=== PATIENT | male | born 1930 | race Caucasian/White ===

== ENCOUNTER 2017-01-16 08:49 | Emergency (ER) | payer MEDICARE ==
--- NOTE | 2017-01-16 09:50 | ED Physician Documentation ---
PD HPI LOWER EXT INJURY - Stated complaint Stated Complaint: LEFT ANKLE INJ/GLF - Chief complaint Chief Complaint: Ext Problem - History obtained from History obtained from: Patient, Family - History of Present Illness PD HPI LOW EXT INJURY LOCATION: Left, Ankle Type of injury: Fall, Twist Where injury occurred: Home Timing - onset: Enter time (1130), Yesterday Timing - duration: Days (1) Timing - details: Abrupt onset, Still present Improved by: Rest, Ice, Immobilization Worsened by: Moving, Palpating Associated symptoms: Swelling. No: Weakness, Numbness Contributing factors: No: Anticoagulated Similar symptoms before: Has not had sx before Recently seen: Not recently seen - Additional information Additional information: 86 y/o male has never sprained his ankle previously and he now was walking down some steps when he twisted his ankle and has a lot of swelling laterally and pain with weight bearing. He is able to bear some weight. Review of Systems Constitutional: denies: Fever Respiratory: denies: Cough GI: denies: Vomiting Skin: denies: Rash Musculoskeletal: reports: Extremity pain, Joint swelling, Pain with weight bearing. denies: Neck pain, Back pain Neurologic: denies: Generalized weakness, Focal weakness, Numbness PD PAST MEDICAL HISTORY - Past Medical History Past Medical History: Yes Cardiovascular: Hypertension, High cholesterol, Coronary artery disease, Other Respiratory: None Endocrine/Autoimmune: None GI: GERD : None HEENT: None Psych: None Musculoskeletal: None Derm: None - Past Surgical History Past Surgical History: Yes General: Colonoscopy Ortho: Hip replacement Cardiovascular: CABG, Valve replacement, AICD HEENT: Cataracts - Present Medications Home Medications: Ambulatory Orders Medication Instructions Recorded Confirmed Ascorbic Acid [Vitamin C] 1,000 mg PO DAILY 08/06/13 01/16/17 Atorvastatin Calcium [Lipitor] 80 mg PO DAILY 08/06/13 01/16/17 Cholecalciferol (Vitamin D3) 1,000 unit PO DAILY 08/06/13 01/16/17 [Vitamin D] Colestipol HCl 2 gm PO DAILY 08/06/13 01/16/17 Docusate Sodium [Stool Softener] 50 mg PO PRN PRN 08/06/13 01/16/17 Ferrous Sulfate [Slow Release Iron] 45 mg PO BID 08/06/13 01/16/17 Lisinopril [Zestril] 7.5 mg PO DAILY 08/06/13 01/16/17 Metoprolol Succinate [Toprol Xl] 25 mg PO DAILY 08/06/13 01/16/17 Multivitamin [Multivitamins] 1 each PO DAILY 08/06/13 01/16/17 [place]-3 Fatty Acids [Fish Oil] 1,200 mg PO DAILY 08/06/13 01/16/17 Omeprazole [PriLOSEC] 20 mg PO DAILY 08/06/13 01/16/17 Ubidecarenone [Coq-10] 100 mg PO DAILY 08/06/13 01/16/17 Aspirin 325 mg PO DAILY 01/16/17 01/16/17 - Allergies Allergies/Adverse Reactions: Allergies Allergy/AdvReac Type Severity Reaction Status Date / Time No Known Drug Allergies Allergy Verified 01/16/17 08:59 - Social History Does the pt smoke?: No Smoking Status: Never smoker PD ED PE NORMAL - Vitals Vital signs reviewed: Yes (hypertensive mild ) - General General: No acute distress, Well developed/nourished - HEENT HEENT: Atraumatic, PERRL - Respiratory Respiratory: No respiratory distress - Derm Derm: Normal color, Warm and dry, No rash - Extremities Extremities: Other (There is trace edema bilaterally and there is tenderness to the lateral malleolus and pain with dorsiflexion. Distal n/v is intact. ) - Neuro Neuro: No motor deficit, No sensory deficit - Psych Psych: Normal mood, Normal affect Results - Vitals Vitals: Vital Signs - 24 hr 01/16/17 01/16/17 08:55 10:44 Temperature 36.6 C Heart Rate 74 65 Respiratory 18 16 Rate Blood Pressure 134/76 H 101/52 L O2 Saturation 99 95 Oxygen O2 Source Room air - Rads (name of study) left ankle Radiology: Prelim report reviewed (Impression: 1. 2 mm displaced mildly comminuted Dunn type B distal fibular fracture. 2. No dislocation.), EMP read indepedently, See rad report Procedures - Splint (location) left ankle Splint applied by: Tech Type of splint: Fiberglass, Posterior Other: Patient tolerated well, No complications, Neurovascular intact, Good alignment, Crutches provided PD MEDICAL DECISION MAKING - ED course Complexity details: reviewed results, re-evaluated patient, considered differential, d/w patient, d/w family ED course: 86 y/o male with a distal fibular fracture is placed into a splint and will have follow up with ortho. Departure - Departure Disposition: 01 Home, Self Care Clinical Impression: Fracture of distal end of left fibula Qualifiers: Encounter type: initial encounter Fracture type: closed Fracture morphology: other fracture Qualified Code(s): S82.832A - Other fracture of upper and lower end of left fibula, initial encounter for closed fracture Condition: Stable Instructions: ED Fx Ankle Lateral Malleolus Follow-Up: Corbin Alston MD [Primary Care Provider] - [facility] [Provider Group]
--- NOTE | 2017-01-16 10:38 | XRAY Preliminary Report ---
Exam: XR Ankle 3 View LT IMPRESSION: 1. 2 mm displaced mildly comminuted Dunn type B distal fibular fracture. 2. No dislocation. [facility] SITE ID: [id number]
--- NOTE | 2017-01-16 10:41 | XRAY Report ---
EXAM: LEFT ANKLE RADIOGRAPHY EXAM DATE: 01/16/2017 10:04 AM. CLINICAL HISTORY: Left lateral ankle pain and swelling status post fall. COMPARISON: None. TECHNIQUE: 3 views. FINDINGS: Bones: Acute Dunn type B oblique distal fibular fracture is displaced by approximately 2 mm. A small accessory fragment is present medially. No medial malleolar fracture present. Joints: The ankle mortise is symmetric. Mild osteoarthritis present with tiny osteophytes developing. No joint effusion. Soft Tissues: Lateral soft tissue swelling measures up to 12 mm . Diffuse vascular calcifications are noted diffusely. IMPRESSION: 1. 2 mm displaced mildly comminuted Dunn type B distal fibular fracture. 2. No dislocation. [facility] Referring Provider Line: [phone] SITE ID: [id number]
[2017-01-16 10:46] VITALS: BP 101/52
== END 2017-01-16 12:20 | disposition home or self-care (01) ==
LOC: ED 08:49
DX: S82.832A Other fracture of upper and lower end of left fibula, initial encounter for closed fracture (principal); I10 Essential (primary) hypertension; Z79.82 Long term (current) use of aspirin; X50.1XXA Overexertion from prolonged static or awkward postures, initial encounter; Y92.009 Unspecified place in unspecified non-institutional (private) residence as the place of occurrence of the external cause
CPT/HCPCS: 29515; 99283

== ENCOUNTER 2017-02-22 13:18 | Outpatient (CLI) | payer MEDICARE ==
--- NOTE | 2017-02-22 18:11 | XRAY Report ---
THREE VIEW LEFT ANKLE: 02/22/2017 CLINICAL INDICATION: Fracture followup. AP, oblique, lateral views of the left ankle demonstrate stable alignment of the distal fibular shaft fracture. Minimal callus formation is noted. Surgical clips in the soft tissues are stable. Mild osteoarthritic changes are stable. IMPRESSION: STABLE ALIGNMENT OF DISTAL FIBULAR SHAFT FRACTURE, WITH MINIMAL CALLUS FORMATION. JOB #: [id number] EXT JOB #:[id number]
== END 2017-02-22 13:19 | disposition home or self-care (01) ==
LOC: DI.S 13:18
PROVIDERS: ATTEND Orthopaedic Surgery
DX: S82.65XD Nondisplaced fracture of lateral malleolus of left fibula, subsequent encounter for closed fracture with routine healing (principal)

== ENCOUNTER 2017-03-21 20:30 | Outpatient (CLI) | payer MEDICARE ==
[2017-03-21 18:45] LABS: ALBUMIN/GLOBULIN RATIO 1.6 (1.0-2.2); BILIRUBIN,TOTAL 0.9 mg/dL (0.2-1.0); BUN - BLOOD UREA NITROGEN 17 mg/dL (6-20); CALCIUM 9.1 mg/dL (8.5-10.3); CARBON DIOXIDE - CO2 30 mmol/L (21-32); CHLORIDE 100 mmol/L (101-111); CHOL/HDL RATIO 2.6 (<5.0); CHOLESTEROL 135 mg/dL; CREATININE 0.9 mg/dL (0.6-1.2); GFR - MDRD 80 (>89); GLUCOSE 102 mg/dL (70-100); HDL CHOLESTEROL 51 mg/dL; LDL/HDL RATIO 1.4 (<3.6); POTASSIUM 4.4 mmol/L (3.5-5.0); SODIUM 139 mmol/L (135-145); TOTAL PROTEIN 6.7 g/dL (6.7-8.2); TRIGLYCERIDES 63 mg/dL; VLDL CHOLESTEROL 13 mg/dL
[2017-03-21 19:08] LABS: BASOPHILS % (AUTO) 0.5 %; EOSINOPHILS # (AUTO) 0.6 10^3/uL (0.0-0.7); HCT - HEMATOCRIT 44.7 % (42.0-52.0); HGB - HEMOGLOBIN 14.7 g/dL (14.0-18.0); LYMPHOCYTES # (AUTO) 1.4 10^3/uL (1.5-3.5); LYMPHOCYTES % (AUTO) 20.3 %; MEAN CORPUSCULAR HEMOGLOBIN 32.2 pg (27.0-31.0); MEAN CORPUSCULAR VOLUME 97.6 fL (80.0-94.0); MEAN PLATELET VOLUME 9.7 fL (7.4-11.4); MONOCYTES # (AUTO) 0.6 10^3/uL (0.0-1.0); MONOCYTES % (AUTO) 8.4 %; NEUTROPHILS # (AUTO) 4.2 10^3/uL (1.5-6.6); NEUTROPHILS % (AUTO) 61.8 %; NUCLEATED RED BLOOD CELLS AUTO 0.1 /100WBC; RED BLOOD COUNT 4.58 10^6/uL (4.70-6.10); RED CELL DISTRIBUTION WIDTH 14.2 % (12.0-15.0); UNCORRECTED WHITE BLOOD COUNT 6.7 x10^3/uL; WHITE BLOOD COUNT 6.7 x10^3/uL (4.8-10.8)
== END 2017-03-21 20:31 | disposition home or self-care (01) ==
LOC: LAB.S 20:30
PROVIDERS: ATTEND Physician Assistant Medical
DX: I25.10 Atherosclerotic heart disease of native coronary artery without angina pectoris (principal); N40.1 Benign prostatic hyperplasia with lower urinary tract symptoms; E78.2 Mixed hyperlipidemia; K20.8 Other esophagitis; Z79.899 Other long term (current) drug therapy
CPT/HCPCS: 36415; 80053; 80061; 84153; 84443; 85025

== ENCOUNTER 2017-07-20 14:37 | Observation (INO) | payer MEDICARE ==
[2017-07-20] MEDS ORDERED: SODIUM CHLORIDE 0.9% 1,000 ML IV ONE (15:16)
[2017-07-20 15:37] LABS: BASOPHILS # (AUTO) 0.1 10^3/uL (0.0-0.1); EOSINOPHILS # (AUTO) 0.2 10^3/uL (0.0-0.7); EOSINOPHILS % (AUTO) 3.7 %; HGB - HEMOGLOBIN 15.4 g/dL (14.0-18.0); LYMPHOCYTES # (AUTO) 0.9 10^3/uL (1.5-3.5); MEAN CORPUSCULAR HEMOGLOBIN 32.2 pg (27.0-31.0); MEAN CORPUSCULAR HGB CONC 34.2 g/dL (32.0-36.0); MEAN CORPUSCULAR VOLUME 94.1 fL (80.0-94.0); MONOCYTES # (AUTO) 0.5 10^3/uL (0.0-1.0); MONOCYTES % (AUTO) 9.5 %; NEUTROPHILS # (AUTO) 3.9 10^3/uL (1.5-6.6); NEUTROPHILS % (AUTO) 68.8 %; PLT - PLATELET COUNT 164 10^3/uL (130-450); RED BLOOD COUNT 4.77 10^6/uL (4.70-6.10); WHITE BLOOD COUNT 5.6 x10^3/uL (4.8-10.8)
[2017-07-20 15:44] LABS: CALCIUM 9.2 mg/dL (8.5-10.3); CREATININE 0.9 mg/dL (0.6-1.2)
[2017-07-20] MEDS ORDERED: BARIUM SULFATE 148 GM POWDER PO ONE (16:00)
[2017-07-20] MEDS ORDERED: BARIUM SULFATE 135 ML BOTTLE PO ONE (16:00)
--- NOTE | 2017-07-20 16:29 | ED Physician Documentation ---
History of Present Illness - Stated complaint Stated Complaint: TROUBLE SWALLOWING - Chief complaint Chief Complaint: Heent - History obtained from History obtained from: Patient - History of Present Illness Timing: How many days ago (3) - Additonal information Additional information: The patient is an 87-year-old male who presents with difficulty swallowing. His symptoms started 3 days ago after swallowing an orange wedge. Since that time he has had "regurgitation" whenever he tries eating. He reports associated nausea, and discomfort in his lower substernal chest when attempting to swallow. He denies abdominal pain, cough, shortness of breath, or fever. He was seen by his primary physician yesterday and reported improvement of his symptoms, so was instructed in soft diet. He presents now because of continued inability to swallow today. He denies history of similar symptoms in the past. Past medical history is significant for aortic valve replacement with bovine valve. Review of Systems Constitutional: denies: Fever Nose: denies: Congestion Throat: denies: Sore throat Cardiac: reports: Chest pain / pressure (with swallowing). denies: Palpitations Respiratory: denies: Dyspnea, Cough GI: reports: Nausea, Vomiting. denies: Abdominal Pain : denies: Dysuria Skin: denies: Rash Musculoskeletal: denies: Back pain, Extremity swelling Neurologic: denies: Focal weakness, Numbness, Headache PD PAST MEDICAL HISTORY - Past Medical History Cardiovascular: Hypertension, High cholesterol, Coronary artery disease, Other Respiratory: None Endocrine/Autoimmune: None GI: GERD : None HEENT: None Psych: None Musculoskeletal: None Derm: None - Past Surgical History Past Surgical History: Yes General: Colonoscopy Ortho: Hip replacement Cardiovascular: CABG, Valve replacement, AICD HEENT: Cataracts - Present Medications Home Medications: Ambulatory Orders Medication Instructions Recorded Confirmed Ascorbic Acid [Vitamin C] 1,000 mg PO DAILY 08/06/13 07/20/17 Atorvastatin Calcium [Lipitor] 80 mg PO DAILY 08/06/13 07/20/17 Cholecalciferol (Vitamin D3) 1,000 unit PO DAILY 08/06/13 07/20/17 [Vitamin D] Colestipol HCl 2 gm PO DAILY 08/06/13 07/20/17 Docusate Sodium [Stool Softener] 50 mg PO PRN PRN 08/06/13 07/20/17 Ferrous Sulfate [Slow Release Iron] 45 mg PO BID 08/06/13 07/20/17 Lisinopril [Zestril] 7.5 mg PO DAILY 08/06/13 07/20/17 Metoprolol Succinate [Toprol Xl] 25 mg PO DAILY 08/06/13 07/20/17 Multivitamin [Multivitamins] 1 each PO DAILY 08/06/13 07/20/17 [place]-3 Fatty Acids [Fish Oil] 1,200 mg PO DAILY 08/06/13 07/20/17 Omeprazole [PriLOSEC] 20 mg PO DAILY 08/06/13 07/20/17 Ubidecarenone [Coq-10] 100 mg PO DAILY 08/06/13 07/20/17 Aspirin 325 mg PO DAILY 01/16/17 07/20/17 - Allergies Allergies/Adverse Reactions: Allergies Allergy/AdvReac Type Severity Reaction Status Date / Time No Known Drug Allergies Allergy Verified 07/20/17 14:44 - Social History Does the pt smoke?: No Smoking Status: Never smoker Does the pt drink ETOH?: Yes ETOH Use: Wine Does the pt have substance abuse?: No - Immunizations Immunizations are current?: Yes - POLST Patient has POLST: Yes PD ED PE NORMAL - Vitals Vital signs reviewed: Yes (Mild hypertension) - General General: Alert and oriented X 3, Well developed/nourished - HEENT HEENT: Atraumatic, Moist mucous membranes, Pharynx benign - Neck Neck: No adenopathy, No JVD - Cardiac Cardiac: RRR - Respiratory Respiratory: No respiratory distress, Clear bilaterally - Abdomen Abdomen: Soft, Non tender - Back Back: No CVA TTP - Derm Derm: No rash - Extremities Extremities: No edema, No calf tenderness / cord - Neuro Neuro: Alert and oriented X 3, No motor deficit, Normal speech Results - Vitals Vitals: Vital Signs - 24 hr 07/20/17 07/20/17 07/20/17 14:39 15:56 16:39 Temperature 36.5 C 36.9 C 36.9 C Heart Rate 81 83 80 Respiratory 17 18 18 Rate Blood Pressure 144/79 H 157/86 H 135/84 H O2 Saturation 97 96 96 Oxygen O2 Source Room air - Labs Labs: Laboratory Tests 07/20/17 07/20/17 15:28 15:28 WBC 5.6 RBC 4.77 Hgb 15.4 Hct 44.8 MCV 94.1 H MCH 32.2 H MCHC 34.2 RDW 13.0 Plt Count 164 MPV 8.0 Neut # 3.9 Lymph # 0.9 L Towner # 0.5 Eos # 0.2 Baso # 0.1 Absolute Nucleated RBC 0.00 Nucleated RBC % 0.1 Sodium 138 Potassium 4.0 Chloride 99 L Carbon Dioxide 30 Anion Gap 9.0 BUN 18 Creatinine 0.9 Estimated GFR (MDRD) 80 L Glucose 112 H Calcium 9.2 - Rads (name of study) esophagogram Radiology: Prelim report reviewed, Discussed with rads, See rad report (Distal esophageal filling defect. May represent mass or impacted food debris. Presbyesophagus. Small hiatal hernia.) PD MEDICAL DECISION MAKING - ED course Complexity details: reviewed results, re-evaluated patient, considered differential, d/w patient ED course: The patient's presentation is significant for esophageal foreign body versus stricture, seen on barium esophagogram. He is in no respiratory distress, but is unable to swallow either solids or liquids. I discussed with the radiologist the results of the barium esophagogram. I discussed the patient's condition with Dr. Alston, his primary physician. I discussed his condition with Dr. Bethea, on-call for surgery. He plans to perform upper endoscopy, but asked that the hospitalist write admitting orders. I discussed his condition with Dr. Rodríguez, who will admit him on observation status. Departure - Departure Disposition: ED Place in Observation Clinical Impression: Foreign body in esophagus Qualifiers: Encounter type: initial encounter Qualified Code(s): T18.108A - Unspecified foreign body in esophagus causing other injury, initial encounter Condition: Stable Discharge Date/Time: 07/20/17 19:13
[2017-07-20] MEDS ORDERED: TEMAZEPAM 15 MG CAPSULE PO PRN (18:51)
[2017-07-20] MEDS: SODIUM CHLORIDE 0.9% 1,000 ML IV SCH (20:31)
[2017-07-20] MEDS: SODIUM CHLORIDE FLUSH 0.9% 10 ML SYRINGE IVP SCH (20:31)
[2017-07-20 22:13] LABS: INR 1.1 (0.8-1.2); PT - PROTHROMBIN TIME 12.5 secs (9.9-12.6)
--- NOTE | 2017-07-20 22:14 | HISTORY & PHYSICAL EXAMINATION ---
Chief Complaint - Chief Complaint Chief Complaint: Mid to lower squeezing colicky chest pain after eating an orange 3 days ago History of Present Illness - Admitted From Admitted From:: Emergency room - History [facility]btained [facility] History obtained from: Patient and emergency room note Exam Limitations: None - History of Present Illness HPI Comment/Other: He has had reflux disease and dyspepsia for decades. He has never had an EGD for this. He has not had any antecedent changes in bowel habits, or unexpected weight changes. He usually takes antacids or proton pump inhibitor to relieve his occasional chest discomfort from reflux disease. 3 days ago his gave him part of an orange for breakfast. He then developed mid to lower esophageal central chest discomfort that was waxing and waning and of a squeezing type sensation. He felt like food was stuck. There is no radiation of the pain. No nausea, diaphoresis no diaphoresis. He does not have any left arm pain, left jaw pain. There is no shortness of breath. He has had angina before and has had bypass surgery in 2003. He says that his current discomfort has nothing to do with his heart, and very similar to discomfort he has had in the past off and on with his reflux. His overall cardiovascular endurance is the same as always been. Because of his heart history with aortic valve replacement, and atrial fibrillation once, he always has chronic dyspnea on exertion. But that is unchanged. There is been no new orthopnea, no edema, no palpitations. In the emergency room, he was evaluated by Dr. Turner. And a CBC and BMP were acceptable. He had an esophagram done because it was felt that he was having esophageal spasm especially when he said that he felt like food was stuck. His esophagram showed distal esophageal filling defect that may be a mass or impacted food debris. Presbyesophagus was also noted with a sliding small hiatal hernia. Dr. Ayad Bethea from General Surgery was contacted. Patient was approximately seen at 2:39 in the afternoon by supervisor stave finishing. Dr. Bethea has yet to see the patient. However Dr. Bethea said the patient should be admitted and to undergo endoscopy. It is the patient's understanding as well as the 's understanding that he was to be done today. We were contacted at 18:50 to admit the patient to our service and Dr. Bethea is to consult. There is been no contact from Dr. Bethea and the patient is not on the OR schedule for tonight. History - Past Medical History Cardiovascular: reports: Congestive heart failure (associated with ACB), Hypertension, High cholesterol, Coronary artery disease (with ACB in 2003), Angina, Atrial fibrillation (once, short and abrupt associated with ACB), Valve disorder ( with AoVR done with ACB 2003), Other (AICD placed in 2003 and battery turned off 2012) Respiratory: reports: None Endocrine/Autoimmune: reports: None GI: reports: GERD, Hiatal hernia : reports: Benign prostate hypertrophy (with LUTS. TURP and fulguration of bladder diverticuli 2004. 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 then Obstruction again, had another contracture removed with circumscision for phimosis. recurrence of obstruciton again 06/2013 with stenosis of prostatic urethra treated.) HEENT: reports: None Psych: reports: None Musculoskeletal: reports: Osteoarthritis (wit occasional join pain), Other ( Dunn B fracture of distal fibula after twisting ankle on stairs 12/2016) Derm: reports: None MRSA Hx?: No - Past Surgical History General: reports: Colonoscopy Ortho: reports: Hip replacement (Left 2006 and Right 2012.) Cardiovascular: reports: CABG (2003), Valve replacement (aortic valve 2003), AICD (turned off 2012) HEENT: reports: Cataracts (both done in 2011) - Family & Social History Family History Comment/Other: Mom of old age with kidney disease. Dad of old age with heart disease. No diseases in his siblings. His one son is healthy. 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 Most of his work was done in [place] where he lives. From [place] he retired to [facility] to be close to his son. He and his live in their own home, and are still independent with activities of daily living. He never smoked. Drinks maybe 1-2 glasses of wine max. Has never had a problem with alcoholism or any recreational substance abuse. - Substance History Use: Uses substance without health or social issues: Alcohol Abuse: Recurrent use of substance despite neg consequences: NONE Dependence: Experiences withdrawal or developed tolerances: NONE - POLST Patient has POLST: No POLST Status: Full Code Meds/Allgy - Home Medications Home Medications: Ambulatory Orders Medication Instructions Recorded Confirmed Ascorbic Acid [Vitamin C] 1,000 mg PO DAILY 08/06/13 07/20/17 Atorvastatin Calcium [Lipitor] 80 mg PO DAILY 08/06/13 07/20/17 Cholecalciferol (Vitamin D3) 1,000 unit PO DAILY 08/06/13 07/20/17 [Vitamin D] Colestipol HCl 2 gm PO DAILY 08/06/13 07/20/17 Docusate Sodium [Stool Softener] 50 mg PO PRN PRN 08/06/13 07/20/17 Ferrous Sulfate [Slow Release Iron] 45 mg PO BID 08/06/13 07/20/17 Lisinopril [Zestril] 7.5 mg PO DAILY 08/06/13 07/20/17 Metoprolol Succinate [Toprol Xl] 25 mg PO DAILY 08/06/13 07/20/17 Multivitamin [Multivitamins] 1 each PO DAILY 08/06/13 07/20/17 [place]-3 Fatty Acids [Fish Oil] 1,200 mg PO DAILY 08/06/13 07/20/17 Omeprazole [PriLOSEC] 20 mg PO DAILY 08/06/13 07/20/17 Ubidecarenone [Coq-10] 100 mg PO DAILY 08/06/13 07/20/17 Aspirin 325 mg PO DAILY 01/16/17 07/20/17 - Allergies Allergies/Adverse Reactions: Allergies Allergy/AdvReac Type Severity Reaction Status Date / Time No Known Drug Allergies Allergy Verified 07/20/17 14:44 Review of Systems - Constitutional Constitutional: denies: Fatigue, Fever, Chills, Poor appetite, Night sweats, Weight gain, Weight loss - Eyes Eyes: denies: Pain, Irritation, Field loss, Vision loss - Ears, Nose & Throat Ears, Nose & Throat: denies: Hearing loss, Hearing aids - Cardiovascular Cariovascular: reports: Exertional dyspnea (stable and chronic for years). denies: Palpitations, Chest pain, Edema, Lightheadedness, Syncope, Decr. exercise tolerance, Orthopnea - Respiratory Respiratory: denies: Cough, Sputum production, Wheezing, Hemoptysis, Orthopnea, SOB at rest, Apnea - Gastrointestinal Gastrointestinal: reports: Nausea, Reflux/heartburn. denies: Abdominal pain, Abdominal distention, Constipation, Vomiting, Coffee grounds emesis, Bloating, Poor appetite - Genitourinary Genitourinary: reports: Frequency, Urgency, Incontinence (occasional). denies: Flank pain, Nocturia, Urethral discharge - Musculoskeletal Musculoskeletal: reports: Joint pain (frequently and no change for years) - Integumentary Integumentary: denies: Rash, Pruritis, Lesions - Neurological Neurological: reports: Dizziness (and blance issues for at least 2-3 years. No change.). denies: General weakness, Focal weakness, Headache, Memory problems, Pre-existing deficit - Psychiatric Psychiatric: denies: Depression, Anxiety, Suicidal, Hallucinations - Endocrine Endocrine: denies: Polyuria, Polydypsia, Polyphagia - Hematologic/Lymphatic Hematologic/Lymphatic: denies: Anemia, Bruising, Petechiae Exam - Vital Signs Reviewed Vital Signs: Yes Vital Signs: Vital Signs x48h Pulse Resp BP Pulse Ox 07/20/17 19:23 82 20 156/83 H 97 - Physical Exam General Appearance: positive: No acute distress, Alert, Other (Very very pleasant elderly gentleman who is well-nourished well-developed and currently not having any chest discomfort at rest) Eyes Bilateral: positive: PERRL ENT: positive: Pharynx nml Neck: positive: No JVD. negative: Stiff neck, Carotid bruit Respiratory: positive: Chest non-tender. negative: Wheezes, Rales, Rhonchi Cardiovascular: positive: Regular rate & rhythm, Systolic murmur. negative: Gallop/S4, Friction rub Peripheral Pulses: positive: 2+ Abdomen: positive: Non-tender, No organomegaly, Nml bowel sounds, No distention Skin: positive: Color nml, No rash, Warm, Dry Extremities: positive: Full ROM, No pedal edema Neurologic/Psychiatric: positive: Oriented x3, CN's nml (2-12), Motor nml Conclusion/Plan - Problem List (1) Foreign body in esophagus Conclusion/Plan: He has a long history of dyspepsia but unfortunately no EGD. This is a sudden obstruction, not subtle so leans towards food bolus stuck but must neoplams being considered. Plan: Place in observation General surgery consultation for EGD and foreign body removal EKG INR N.p.o. Proton pump inhibitor IV Qualifiers: Encounter type: initial encounter Qualified Code(s): T18.108A - Unspecified foreign body in esophagus causing other injury, initial encounter (2) Preop cardiovascular exam Conclusion/Plan: At this time preoperative evaluation shows him to be at low risk for procedural complications with regards to cardiopulmonary status. He has had no recent change in cardiovascular endurance, no angina, no atrial fibrillation, no DC, no renal problems, no severe lung problems. (3) Status post aorto-coronary artery bypass graft Conclusion/Plan: No angina at this time. No signs of arrhythmia or CHF. No change in managment. - Lab Results Fish Bones: 07/20/17 15:28 07/20/17 15:28 - Diagnostic Imaging Results Diagnostic Imaging Results: positive: Final report reviewed - EKG Results EKG Interpreted Independently: No Core Measures - Anticipated LOS I expect patient to be DC'd or transferred within 96 hours.: Yes - DVT/VTE - Prophylaxis VTE/DVT Device ordered at admit?: Yes
[2017-07-20] MEDS: SODIUM CHLORIDE FLUSH 0.9% 10 ML SYRINGE IVP PRN (22:59)
[2017-07-20] MEDS: PANTOPRAZOLE 40 MG VIAL IVP SCH (22:59)
[2017-07-21] MEDS: METOPROLOL 5 MG/5 ML VIAL IVP SCH ×2 (00:32→05:42)
[2017-07-21] MEDS: SODIUM CHLORIDE FLUSH 0.9% 10 ML SYRINGE IVP PRN ×2 (00:41→05:59)
[2017-07-21] MEDS: SODIUM CHLORIDE FLUSH 0.9% 10 ML SYRINGE IVP SCH (05:43)
[2017-07-21] MEDS: PANTOPRAZOLE 40 MG VIAL IVP SCH (05:59)
[2017-07-21 06:15] LABS: BASOPHILS % (AUTO) 0.5 %; EOSINOPHILS # (AUTO) 0.3 10^3/uL (0.0-0.7); EOSINOPHILS % (AUTO) 4.3 %; HGB - HEMOGLOBIN 13.9 g/dL (14.0-18.0); LYMPHOCYTES # (AUTO) 1.2 10^3/uL (1.5-3.5); LYMPHOCYTES % (AUTO) 17.3 %; MEAN CORPUSCULAR HEMOGLOBIN 32.3 pg (27.0-31.0); MEAN CORPUSCULAR HGB CONC 33.7 g/dL (32.0-36.0); MEAN CORPUSCULAR VOLUME 95.7 fL (80.0-94.0); MEAN PLATELET VOLUME 8.1 fL (7.4-11.4); MONOCYTES # (AUTO) 0.8 10^3/uL (0.0-1.0); MONOCYTES % (AUTO) 11.4 %; NEUTROPHILS # (AUTO) 4.7 10^3/uL (1.5-6.6); NEUTROPHILS % (AUTO) 66.5 %; PLT - PLATELET COUNT 158 10^3/uL (130-450); RED BLOOD COUNT 4.31 10^6/uL (4.70-6.10); RED CELL DISTRIBUTION WIDTH 12.9 % (12.0-15.0); WHITE BLOOD COUNT 7.1 x10^3/uL (4.8-10.8)
[2017-07-21 06:27] LABS: ALBUMIN 3.6 g/dL (3.2-5.5); ALBUMIN/GLOBULIN RATIO 1.6 (1.0-2.2); BILIRUBIN,TOTAL 1.5 mg/dL (0.2-1.0); CALCIUM 8.4 mg/dL (8.5-10.3); CREATININE 0.8 mg/dL (0.6-1.2); TOTAL PROTEIN 5.8 g/dL (6.7-8.2)
[2017-07-21] MEDS ORDERED: LACTATED RINGERS 1,000 ML IV ONE (08:10)
[2017-07-21] MEDS ORDERED: PROPOFOL 200 MG/20 ML VIAL IVP ONE (08:48)
[2017-07-21] MEDS ORDERED: LIDOCAINE-MPF 2% 5 ML VIAL IM ONE (08:48)
--- NOTE | 2017-07-21 08:48 | CONSULTATION NOTE ---
DATE OF SERVICE: 07/20/2017 Physician: Harjit Bethea MD REASON FOR ADMISSION: Dysphagia. REFERRING PROVIDER: Dr. Turner HISTORY OF PRESENT ILLNESS: The patient is an 87-year-old male who presents with recurrent dysphagia . He sometimes describes it as tightness, other times just feeling like food is getting stuck in the back of his throat or chest area. This has been going on for a number of years with him saying maybe at least 10 years. He has approximately 5 episodes a month of this dysphagia. It usually clears up after 24 hours of oc curring. This current episode has been present for at least 3 days, which is unusual for him. He thinks it ma y have been precipitated by eating an orange slice. After eating the orange slice, he had the discomfort o r tightness and had dry heaves. Discomfort persisted, and therefore he had seen his primary care who recommended he be seen in the emergency room. He is having minimal discomfort at the current time, does not feel like he is having any nausea or fe eling like he is going to throw up. He does have a cardiac history, having aortic valve replacement and co ronary artery bypass. He has been seen by the hospitalist who felt that this is not due to cardiac in zoë e. He had an esophagogram, which showed a small filling defect in the distal esophagus along with a small s liding hiatal hernia and presbyesophagus. He has not had any problems with bowel movements. He does not kn ow when he last had his colonoscopy. His history is also significant for reflux disease. He specifically sa ys reflux and when brought up whether it is heartburn, again he feels reflux. He had been on omeprazole 20 mg daily, and this has been increased up to 20 mg twice a day. He has not had any further reflux symptoms. It is unknown how long he has been on the increased dose. PAST SURGICAL HISTORY 1. Bilateral hip replacements. 2. Coronary artery disease with valve replacement and AICD. 3. Cataract surgery. MEDICATIONS 1. Aspirin. 2. Prilosec. 3. Toprol. 4. Zestril. 5. Iron. 6. Colestipol. 7. Lipitor. 8. Vitamin C. PAST MEDICAL HISTORY 1. Gastroesophageal reflux disease. 2. Coronary artery disease. 3. Hypertension. SOCIAL HISTORY: The patient is . HABITS: The patient denies any smoking history. Occasionally has wine. Denies any drug use. FAMILY HISTORY: Noncontributory. REVIEW OF SYSTEMS GASTROINTESTINAL: Dysphagia. MUSCULOSKELETAL: Arthritis. A 12-point review of systems was obtained with pertinent positives and negatives discussed and all ot hers negative. PHYSICAL EXAMINATION VITAL SIGNS: Temperature is 36.9, heart rate 80, blood pressure 135/84. GENERAL: The patient is lying in bed. He is cooperative and appears to answer questions fully. He does not appear to be in any distress. EYES: Nonicteric. NECK: No lymphadenopathy. HEART: Regular. LUNGS: Clear. BACK: Nontender. ABDOMEN: Soft, nontender. EXTREMITIES: No edema or cyanosis. NEUROLOGIC: Patient appears to be neurologically intact without any deficit. PSYCHOLOGICAL: The patient is coherent, cooperative, and appears to answer questions fully. DIAGNOSTIC DATA: White blood cell count 5.6, hemoglobin 15.4, platelets 164. Esophagogram: See hist ory of present illness. ASSESSMENT 1. Dysphagia with chest discomfort versus tightness. Does not appear to be cardiac in nature. He d oes have this abnormality seen on esophagogram, which needs to be evaluated. This could be a tumor, stricture , foreign body, congenital in nature, etc. I recommend that he undergo esophagogastroduodenoscopy with possibl e biopsy or dilation, or removal of foreign body. The risks and possible complication of the procedure have b een explained to him and include, but not limited to bleeding, infection, anesthesia risk, heart and lung problems, wound healing problems, perforation causing major morbidity and mortality and need for furt her intervention, negative evaluation, continued dysphagia, cardiopulmonary problems. He accepts the ris ks and wishes to proceed. He will be admitted to the hospitalist service. 2. Coronary artery disease, stable. 3. History of aortic valve replacement with porcine valve with no obvious abnormalities currently. 4. Cardiac arrhythmias with history of AICD placement. 5. Hypertension, on antihypertensive. 6. Gastroesophageal reflux, controlled with omeprazole. PLAN 1. The patient will be admitted to the hospitalist service. 2. N.p.o. after midnight. 3. IV fluids for esophagogastroduodenoscopy with possible biopsy, removal of foreign body, or dilati on. cc: Corbin Alston TD: 07/21/2017 07:16
[2017-07-21] MEDS ORDERED: POLYETHYLENE GLYCOL 3350 17 GM PACKET PO SCH (09:00)
--- NOTE | 2017-07-21 10:55 | DISCHARGE SUMMARY ---
Discharge Summary Admit Date: 07/20/17 Discharge Date: 07/21/17 Discharging Provider: TRIP Donald Primary Care Provider: Corbin Alston Code Status: Attempt Resuscitation Condition at Discharge: Good Discharge Disposition: 01 Home, Self Care - DIAGNOSES Admission Diagnoses: Unspecified foreign body in esophagus causing other injury, initial encounter ( T18.108A) Encounter for preprocedural cardiovascular examination (Z01.810) Presence of aortocoronary bypass graft (Z95.1) Discharge Diagnoses with Status of Each Condition: Esophageal foreign body (T18.108A)-resolved. S/P dilatation of esophageal stricture (Z98.890) ongoing and part of medical history, resolved for this hospital stay. GERD (gastroesophageal reflux disease) (K21.9) ongoing, controlled. 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 - HPI History of Present Illness: HPI per Dr. Avery: He has had reflux disease and dyspepsia for decades. He has never had an EGD for this. He has not had any antecedent changes in bowel habits, or unexpected weight changes. He usually takes antacids or proton pump inhibitor to relieve his occasional chest discomfort from reflux disease. 3 days ago his gave him part of an orange for breakfast. He then developed mid to lower esophageal central chest discomfort that was waxing and waning and of a squeezing type sensation. He felt like food was stuck. There is no radiation of the pain. No nausea, diaphoresis no diaphoresis. He does not have any left arm pain, left jaw pain. There is no shortness of breath. He has had angina before and has had bypass surgery in 2003. He says that his current discomfort has nothing to do with his heart, and very similar to discomfort he has had in the past off and on with his reflux. His overall cardiovascular endurance is the same as always been. Because of his heart history with aortic valve replacement, and atrial fibrillation once, he always has chronic dyspnea on exertion. But that is unchanged. There is been no new orthopnea, no edema, no palpitations. In the emergency room, he was evaluated by Dr. Turner. And a CBC and BMP were acceptable. He had an esophagram done because it was felt that he was having esophageal spasm especially when he said that he felt like food was stuck. His esophagram showed distal esophageal filling defect that may be a mass or impacted food debris. Presbyesophagus was also noted with a sliding small hiatal hernia. Dr. Ayad Bethea from General Surgery was contacted. Patient was approximately seen at 2:39 in the afternoon by nurse outreach case manager. Dr. Bethea has yet to see the patient. However Dr. Bethea said the patient should be admitted and to undergo endoscopy. It is the patient's understanding as well as the 's understanding that he was to be done today. We were contacted at 18:50 to admit the patient to our service and Dr. Bethea is to consult. There is been no contact from Dr. Bethea and the patient is not [facility]. - HOSPITAL COURSE Hospital Course: Patient had a piece of an orange lodged in his esophagus that was removed during his EGD, and esophageal dilation was performed by General surgery, Dr. Bethea. Patient had an uneventful recovery and was taken by private car in stable condition with , home. - ALLERGIES Allergies/Adverse Reactions: Allergies Allergy/AdvReac Type Severity Reaction Status Date / Time No Known Drug Allergies Allergy Verified 07/20/17 14:44 - MEDICATIONS Home Medications: Ambulatory Orders Medication Instructions Recorded Confirmed Ascorbic Acid [Vitamin C] 1,000 mg PO DAILY 08/06/13 07/21/17 Atorvastatin Calcium [Lipitor] 80 mg PO QPM 08/06/13 07/21/17 Cholecalciferol (Vitamin D3) 1,000 unit PO DAILY 08/06/13 07/21/17 [Vitamin D3] Colestipol HCl 1 gm PO QID PRN 08/06/13 07/21/17 Docusate Sodium [Stool Softener] 50 mg PO PRN PRN 08/06/13 07/21/17 Ferrous Sulfate [Slow Release Iron] 45 mg PO BID 08/06/13 07/21/17 Lisinopril [Zestril] 7.5 mg PO DAILY 08/06/13 07/21/17 Multivitamin [Multivitamins] 1 each PO DAILY 08/06/13 07/21/17 [place]-3 Fatty Acids [Fish Oil] 1,200 mg PO DAILY 08/06/13 07/21/17 Omeprazole [PriLOSEC] 20 mg PO QDAC 08/06/13 07/21/17 Ubidecarenone [Coq-10] 100 mg PO DAILY 08/06/13 07/21/17 Aspirin 325 mg PO DAILY 01/16/17 07/21/17 Metoprolol Tartrate [Lopressor] 12.5 mg PO BID 07/21/17 07/21/17 - PHYSICAL EXAM AT DISCHARGE General Appearance: positive: No acute distress, Alert Eyes Bilateral: positive: Normal inspection, PERRL ENT: positive: ENT inspection nml, Pharynx nml, No signs of dehydration Neck: positive: Nml inspection, Thyroid nml, No JVD, Trachea midline Respiratory: positive: Chest non-tender, No respiratory distress, Other ( dimished) Cardiovascular: positive: No gallop, Irregularly irregular Peripheral Pulses: positive: 2+ Abdomen: positive: Non-tender, No organomegaly, Nml bowel sounds, No distention Back: positive: Nml inspection Skin: positive: Color nml, No rash, Warm, Dry Extremities: positive: Non-tender, Full ROM, Nml appearance, Pedal edema (trace) Neurologic/Psychiatric: positive: Oriented x3, CN's nml (2-12), Motor nml, Sensation nml, Sensory loss, Depressed mood/affect Reflexes: Bicep (R): 2+, Bicep (L): 2+ - LABS Result Diagrams: 07/21/17 05:59 07/21/17 05:59 - DIAGNOSTIC IMAGING Diagnostic Imaging Results: Final report reviewed Diagnostic Imaging Results Comments: Esophagram: 07/20/17 CLINICAL INDICATION: Sensation of food getting stuck, difficulty swallowing. FINDINGS: Esophagram was performed in the upright and prone positions. The esophagus demonstrates tertiary contractions. There is an irregular filling defect present in the distal esophagus, which did not appear mobile during real time imaging, and is suspicious for a distal esophageal mass. Alternatively, impacted food debris could have a similar appearance. There was mobile food debris in the mid esophagus, seen in various positions during the course of the examination. There is a small sliding hiatal hernia present intermittently visualized. No definite reflux was appreciated, but given the prolonged retention of barium in the esophagus, reflux would be difficult to exclude. IMPRESSION: Filling defect in the distal esophagus, which may represent an esophageal mass or possibly impacted food. Correlation with endoscopy is recommended. Presbyesophagus. Small sliding hiatal hernia. FLUOROSCOPY TIME: Two minutes 11 seconds; 23 spot images obtained. - FOLLOW UP Follow Up: An esophageal stricture was found and dilated by General surgery, Dr. Bethea during an endoscopy that was completed on 07/21/17. This procedure when quite well with no complications. A foreign object, (a piece of orange) was found and removed. Please advance your diet slowly and stick with soft foods for the rest of today. Please plan to see Dr. Bethea in about 2 weeks as a follow up to this procedure. Please see Dr. Alston as a follow up to this hospital stay in the next 3-7 days. Take all medications as prescribed. - TIME SPENT Time Spent in Discharge (Minutes): 45
--- NOTE | 2017-07-21 11:44 | Discharge Plan ---
Discharge Plan Disposition: 01 Home, Self Care Condition: Good Diet: Soft Activity Restrictions: No Restrictions Shower Restrictions: No Driving Restrictions: No Weight Bearing: Full Weight Additional Instructions or Follow Up instructions: An esophageal stricture was found and dilated by General surgery, Dr. Bethea during an endoscopy that was completed on 07/21/17. This procedure when quite well with no complications. A foreign object, (a piece of orange) was found and removed. Please advance your diet slowly and stick with soft foods for the rest of today. Please plan to see Dr. Bethea in about 2 weeks as a follow up to this procedure. Please see Dr. Alston as a follow up to this hospital stay in the next 3-7 days. Take all medications as prescribed. No Smoking: If you smoke, Please STOP! Call for help. Follow-up with: Corbin Alston MD [Primary Care Provider] -
[2017-07-21] MEDS ORDERED: METOPROLOL TARTRATE 25 MG TABLET PO ONE (12:01)
[2017-07-21] MEDS: SODIUM CHLORIDE 0.9% 1,000 ML IV SCH (12:16)
[2017-07-21 13:32] VITALS: BP 102/43
--- NOTE | 2017-07-21 16:36 | XRAY Report ---
DATE OF SERVICE: 07/20/2017 ESOPHAGRAM: 07/20/2017 CLINICAL INDICATION: Sensation of food getting stuck, difficulty swallowing. FINDINGS: Esophagram was performed in the upright and prone positions. The esophagus demonstrates t ertiary contractions. There is an irregular filling defect present in the distal esophagus, which did not ap pear mobile during real time imaging, and is suspicious for a distal esophageal mass. Alternatively, impa cted food debris could have a similar appearance. There was mobile food debris in the mid esophagus, seen in v arious positions during the course of the examination. There is a small sliding hiatal hernia present inter mittently visualized. No definite reflux was appreciated, but given the prolonged retention of barium in the e sophagus, reflux would be difficult to exclude. IMPRESSION: Filling defect in the distal esophagus, which may represent an esophageal mass or possib ly impacted food. Correlation with endoscopy is recommended. Presbyesophagus. Small sliding hiatal he rnia. FLUOROSCOPY TIME: Two minutes 11 seconds; 23 spot images obtained. Results called to Dr. Turner in the emergency department on 07/20/2017 at 1550 hours. TD: 07/20/2017 19:19
== END 2017-07-21 14:03 | disposition home or self-care (01) ==
LOC: ED 14:37 → OBS 18:52
PROVIDERS: ADMIT Specialist; ATTEND Nurse Practitioner
PROC: 0DB58ZX Excision of Esophagus, Via Natural or Artificial Opening Endoscopic, Diagnostic (ICD-10-PCS; 2017-07-21)
PROC: 0D748ZZ Dilation of Esophagogastric Junction, Via Natural or Artificial Opening Endoscopic (ICD-10-PCS; 2017-07-21)
PROC: 0DC38ZZ Extirpation of Matter from Lower Esophagus, Via Natural or Artificial Opening Endoscopic (ICD-10-PCS; principal; 2017-07-21 08:00)
DX: T18.128A Food in esophagus causing other injury, initial encounter (principal); K22.2 Esophageal obstruction; K22.8 Other specified diseases of esophagus; K44.9 Diaphragmatic hernia without obstruction or gangrene; K21.9 Gastro-esophageal reflux disease without esophagitis; I10 Essential (primary) hypertension; I25.119 Atherosclerotic heart disease of native coronary artery with unspecified angina pectoris; E78.00 Pure hypercholesterolemia, unspecified; N40.1 Benign prostatic hyperplasia with lower urinary tract symptoms; R35.0 Frequency of micturition; R39.15 Urgency of urination; Z95.1 Presence of aortocoronary bypass graft; Z95.810 Presence of automatic (implantable) cardiac defibrillator; Z95.3 Presence of xenogenic heart valve; Z79.82 Long term (current) use of aspirin; Z86.79 Personal history of other diseases of the circulatory system; Z96.643 Presence of artificial hip joint, bilateral
CPT/HCPCS: 36415; 43239; 43247; 43249; 74220; 80048; 80053; 83735; 84100; 85025; 85610; 93005; 96361; 96374; 96375; 96376; 99283; 99284; A9270; J7120; 96360

== ENCOUNTER 2017-10-06 19:22 | Outpatient (CLI) | payer MEDICARE | END 2017-10-06 19:23 | disposition EMS.NT | LOC: EMS 19:22 | PROVIDERS: ATTEND Surgery | DX: S00.81XA Abrasion of other part of head, initial encounter (principal); W18.39XA Other fall on same level, initial encounter; Y92.008 Other place in unspecified non-institutional (private) residence as the place of occurrence of the external cause ==

== ENCOUNTER → 2018-03-21 | Outpatient (CLI) | payer MEDICARE ==
[2018-03-21 17:34] LABS: BASOPHILS % (AUTO) 0.5 %; EOSINOPHILS # (AUTO) 0.3 10^3/uL (0.0-0.7); EOSINOPHILS % (AUTO) 5.1 %; HGB - HEMOGLOBIN 15.2 g/dL (14.0-18.0); LYMPHOCYTES # (AUTO) 1.1 10^3/uL (1.5-3.5); LYMPHOCYTES % (AUTO) 18.3 %; MEAN CORPUSCULAR HEMOGLOBIN 32.5 pg (27.0-31.0); MEAN CORPUSCULAR HGB CONC 33.9 g/dL (32.0-36.0); MEAN PLATELET VOLUME 9.6 fL (7.4-11.4); MONOCYTES # (AUTO) 0.5 10^3/uL (0.0-1.0); MONOCYTES % (AUTO) 8.5 %; NEUTROPHILS % (AUTO) 67.6 %; PLT - PLATELET COUNT 142 10^3/uL (130-450); RED BLOOD COUNT 4.69 10^6/uL (4.70-6.10); RED CELL DISTRIBUTION WIDTH 13.7 % (12.0-15.0); WHITE BLOOD COUNT 5.9 x10^3/uL (4.8-10.8)
[2018-03-21 19:20] LABS: ALBUMIN 4.2 g/dL (3.2-5.5); ALBUMIN/GLOBULIN RATIO 1.4 (1.0-2.2); ALKALINE PHOSPHATASE 58 IU/L (42-121); ALT ALANINE AMINOTRANSFERASE 23 IU/L (10-60); AST ASPARTATE AMINOTRANSFERASE 31 IU/L (10-42); BILIRUBIN,TOTAL 0.8 mg/dL (0.2-1.0); BUN - BLOOD UREA NITROGEN 20 mg/dL (6-20); CALCIUM 9.6 mg/dL (8.5-10.3); CARBON DIOXIDE - CO2 30 mmol/L (21-32); CHLORIDE 102 mmol/L (101-111); CHOL/HDL RATIO 3.2 (<5.0); CHOLESTEROL 134 mg/dL; CREATININE 0.8 mg/dL (0.6-1.2); GFR - MDRD 91 (>89); GLUCOSE 125 mg/dL (70-100); HDL CHOLESTEROL 42 mg/dL; LDL CHOLESTEROL,CALCULATED 70 mg/dL; LDL/HDL RATIO 1.7 (<3.6); SODIUM 139 mmol/L (135-145); TOTAL PROTEIN 7.2 g/dL (6.7-8.2); VLDL CHOLESTEROL 22 mg/dL
== END ==
LOC: LAB.F 12:15
PROVIDERS: ATTEND Physician Assistant Medical
DX: D53.9 Nutritional anemia, unspecified (principal); Z79.899 Other long term (current) drug therapy; E78.2 Mixed hyperlipidemia; I25.10 Atherosclerotic heart disease of native coronary artery without angina pectoris; N40.1 Benign prostatic hyperplasia with lower urinary tract symptoms
CPT/HCPCS: 36415; 80053; 80061; 83721; 84153; 85025

== ENCOUNTER 2018-05-26 08:00 | Outpatient (CLI) | payer MEDICARE ==
[2018-05-26 15:06] LABS: BASOPHILS % (AUTO) 0.6 %; EOSINOPHILS # (AUTO) 0.4 10^3/uL (0.0-0.7); EOSINOPHILS % (AUTO) 5.3 %; HGB - HEMOGLOBIN 14.4 g/dL (14.0-18.0); LYMPHOCYTES # (AUTO) 0.9 10^3/uL (1.5-3.5); MEAN CORPUSCULAR HEMOGLOBIN 32.7 pg (27.0-31.0); MEAN CORPUSCULAR HGB CONC 34.6 g/dL (32.0-36.0); MEAN CORPUSCULAR VOLUME 94.7 fL (80.0-94.0); MEAN PLATELET VOLUME 8.8 fL (7.4-11.4); MONOCYTES # (AUTO) 0.6 10^3/uL (0.0-1.0); MONOCYTES % (AUTO) 9.6 %; NEUTROPHILS # (AUTO) 4.7 10^3/uL (1.5-6.6); NEUTROPHILS % (AUTO) 70.5 %; PLT - PLATELET COUNT 206 10^3/uL (130-450); RED CELL DISTRIBUTION WIDTH 13.2 % (12.0-15.0); WHITE BLOOD COUNT 6.7 x10^3/uL (4.8-10.8)
[2018-05-26 15:14] LABS: ALBUMIN 3.8 g/dL (3.2-5.5); ALBUMIN/GLOBULIN RATIO 1.2 (1.0-2.2); BILIRUBIN,TOTAL 0.9 mg/dL (0.2-1.0); CALCIUM 9.2 mg/dL (8.5-10.3); CREATININE 0.8 mg/dL (0.6-1.2); TOTAL PROTEIN 7.1 g/dL (6.7-8.2)
== END 2018-05-26 08:01 | disposition home or self-care (01) ==
LOC: LAB.R 08:00
PROVIDERS: ATTEND Physician Assistant Medical
DX: R41.81 Age-related cognitive decline (principal)
CPT/HCPCS: 80053; 81599; 82306; 82607; 85025; 86592

== ENCOUNTER 2019-01-10 13:28 | Outpatient (CLI) | payer MEDICARE ==
[2019-01-10 13:48] LABS: BASOPHILS % (AUTO) 0.4 %; EOSINOPHILS # (AUTO) 0.3 10^3/uL (0.0-0.7); EOSINOPHILS % (AUTO) 4.1 %; HGB - HEMOGLOBIN 15.7 g/dL (14.0-18.0); LYMPHOCYTES # (AUTO) 1.4 10^3/uL (1.5-3.5); LYMPHOCYTES % (AUTO) 18.5 %; MEAN CORPUSCULAR HEMOGLOBIN 31.2 pg (27.0-31.0); MEAN CORPUSCULAR HGB CONC 31.3 g/dL (32.0-36.0); MEAN CORPUSCULAR VOLUME 99.6 fL (80.0-94.0); MEAN PLATELET VOLUME 10.4 fL (7.4-11.4); MONOCYTES # (AUTO) 0.8 10^3/uL (0.0-1.0); MONOCYTES % (AUTO) 10.3 %; NEUTROPHILS % (AUTO) 66.4 %; PLT - PLATELET COUNT 147 10^3/uL (130-450); RED BLOOD COUNT 5.03 10^6/uL (4.70-6.10); RED CELL DISTRIBUTION WIDTH 13.2 % (12.0-15.0); WHITE BLOOD COUNT 7.6 x10^3/uL (4.8-10.8)
[2019-01-10 14:06] LABS: ALBUMIN 4.4 g/dL (3.2-5.5); ALBUMIN/GLOBULIN RATIO 1.3 (1.0-2.2); BILIRUBIN,TOTAL 0.9 mg/dL (0.2-1.0); CALCIUM 9.8 mg/dL (8.5-10.3); CREATININE 0.9 mg/dL (0.6-1.2); TOTAL PROTEIN 7.7 g/dL (6.7-8.2)
[2019-01-10 14:14] LABS: T4 (THYROXINE) 7.94 ug/dL (6.09-12.23)
[2019-01-10 14:17] LABS: THYROID STIMULATING HORMONE 3.54 uIU/mL (0.34-5.60)
== END 2019-01-10 13:29 | disposition home or self-care (01) ==
LOC: LAB 13:28
PROVIDERS: ATTEND Family Medicine
DX: N40.1 Benign prostatic hyperplasia with lower urinary tract symptoms (principal); N13.8 Other obstructive and reflux uropathy; Z95.810 Presence of automatic (implantable) cardiac defibrillator; I25.10 Atherosclerotic heart disease of native coronary artery without angina pectoris; I11.0 Hypertensive heart disease with heart failure; I50.9 Heart failure, unspecified
CPT/HCPCS: 36415; 80053; 84436; 84443; 84481; 85025

== ENCOUNTER 2019-04-10 14:19 | Outpatient (CLI) | payer MEDICARE ==
--- NOTE | 2019-04-13 18:00 | XRAY Report ---
Reason: WEAKNESS OF BILATERAL LEGS Procedure Date: 04/10/2019 Accession Number: [id number] / [id number] Procedure: XR - Lumbar Spine 2 View CPT Code: FULL RESULT: EXAM: LUMBOSACRAL SPINE RADIOGRAPHY EXAM DATE: 04/10/2019 02:41 PM HISTORY: WEAKNESS OF BILATERAL LEGS TECHNIQUE: AP, lateral and lateral lumbosacral 3 view exam COMPARISON: None. FINDINGS: Mild convex right curvature. Probable osteopenia. Multilevel spondylosis noted with mild disk space narrowing from T12-L3 and moderate disk space narrowing from L3-S1. L3-L4 has mild anterolisthesis. L4-L5 has endplate irregularity and sclerosis consistent with moderate to severe degenerative disk disease. Facet osteoarthritis also noted. L5-S1 has moderate disk space narrowing and mild facet osteoarthritis. No compression fractures. Other: Bilateral hip prostheses noted. Heavy aortoiliac calcification. IMPRESSION: Multilevel spondylosis as described. Osteopenia. Mild convex right curvature. RADIA
== END 2019-04-10 14:20 | disposition home or self-care (01) ==
LOC: DI 14:19
PROVIDERS: ATTEND Family Medicine
DX: M47.817 Spondylosis without myelopathy or radiculopathy, lumbosacral region (principal); M51.37 Other intervertebral disc degeneration, lumbosacral region; M85.88 Other specified disorders of bone density and structure, other site
CPT/HCPCS: 72100

== ENCOUNTER 2019-06-20 15:59 | Outpatient (CLI) | payer MEDICARE ==
[2019-06-20 16:26] LABS: CALCIUM 9.8 mg/dL (8.5-10.3); CREATININE 0.9 mg/dL (0.6-1.2)
== END 2019-06-20 16:00 | disposition home or self-care (01) ==
LOC: LAB 15:59
PROVIDERS: ATTEND Family Medicine
DX: N32.89 Other specified disorders of bladder (principal); K22.2 Esophageal obstruction; R73.9 Hyperglycemia, unspecified; E78.2 Mixed hyperlipidemia; K21.9 Gastro-esophageal reflux disease without esophagitis; R53.81 Other malaise
CPT/HCPCS: 36415; 80048

== ENCOUNTER 2019-08-29 10:02 | Emergency (ER) | payer MEDICARE ==
[2019-08-29] MEDS ORDERED: ACETAMINOPHEN 325 MG TABLET PO STA (10:43)
--- NOTE | 2019-08-29 10:46 | ED Physician Documentation ---
History of Present Illness - Stated complaint Stated Complaint: RIGHT SIDE PX, GLF - Chief complaint Chief Complaint: Ext Problem - History obtained from History obtained from: Patient, Family (89-year-old male presented to the emergency room accompanied by his with complaint of right lumbar area tenderness. He fell about 10 days ago and pain has gradually worsened. He has not been seen by primary care doctor or any medical personnel. According to the , there was light out about 10 days ago and when the light came back, she went downstairs trying to turn off the light and found her on the floor. There was no known duration how long he has been there. There was no acute distress. He was able to walk gently and slowly. 2 days later, he has complaint of right lumbar area lower rib area tenderness. There is also mild tenderness on deep inspiration and shallow breath. No systemic fever no chills. Patient denies any head injury no neck pain. No chest pain. He remembered incidents.), Friend - History of Present Illness Timing: How many days ago (10) Review of Systems Ten Systems: 10 systems reviewed and negative Constitutional: reports: Reviewed and negative Eyes: reports: Reviewed and negative Ears: reports: Reviewed and negative Nose: reports: Reviewed and negative Throat: reports: Reviewed and negative Cardiac: reports: Reviewed and negative Respiratory: reports: Other (pain during deep inspiration) GI: reports: Reviewed and negative : reports: Reviewed and negative Skin: reports: Reviewed and negative Musculoskeletal: reports: Reviewed and negative Neurologic: reports: Reviewed and negative Psychiatric: reports: Reviewed and negative Endocrine: reports: Reviewed and negative Immunocompromised: reports: Reviewed and negative PD PAST MEDICAL HISTORY - Past Medical History Cardiovascular: Congestive heart failure, Hypertension, High cholesterol, Coronary artery disease, Angina, Atrial fibrillation, Valve disorder Respiratory: None Neuro: None Endocrine/Autoimmune: None GI: GERD, Hiatal hernia : Benign prostate hypertrophy, Retention HEENT: None Psych: None Musculoskeletal: Osteoarthritis Derm: None - Past Surgical History Past Surgical History: Yes General: Colonoscopy Ortho: Hip replacement Cardiovascular: CABG, Valve replacement, AICD HEENT: Cataracts, Other - Present Medications Home Medications: Ambulatory Orders Medication Instructions Recorded Confirmed Ascorbic Acid [Vitamin C] 1,000 mg PO DAILY 08/06/13 05/29/19 Atorvastatin Calcium [Lipitor] 80 mg PO QPM 08/06/13 05/29/19 Cholecalciferol (Vitamin D3) 1,000 unit PO DAILY 08/06/13 05/29/19 [Vitamin D3] Docusate Sodium [Stool Softener] 100 mg PO DAILY PRN 08/06/13 05/29/19 Ferrous Sulfate [Slow Release Iron] 45 mg PO BID 08/06/13 07/21/17 Lisinopril [Zestril] 7.5 mg PO DAILY 08/06/13 05/29/19 Multivitamin [Multivitamins] 1 tab PO DAILY 08/06/13 05/29/19 Pine-3 Fatty Acids [Fish Oil] 1,200 mg PO DAILY 08/06/13 05/29/19 Omeprazole [PriLOSEC] 20 mg PO QDAC 08/06/13 05/29/19 Ubidecarenone [Coq-10] 100 mg PO DAILY 08/06/13 05/29/19 Aspirin 325 mg PO DAILY 01/16/17 05/29/19 Metoprolol Tartrate [Lopressor] 12.5 mg PO BID 07/21/17 05/29/19 Ibuprofen 600 mg PO Q8HR PRN #30 capsule 08/29/19 - Allergies Allergies/Adverse Reactions: Allergies Allergy/AdvReac Type Severity Reaction Status Date / Time No Known Drug Allergies Allergy Verified 08/29/19 10:15 - Social History Does the pt smoke?: No Smoking Status: Never smoker Does the pt drink ETOH?: Yes Does the pt have substance abuse?: No - Immunizations Immunizations are current?: Yes - POLST Patient has POLST: No POLST Status: Full Code PD ED PE NORMAL - Vitals Vital signs reviewed: Yes - General General: Alert and oriented X 3, No acute distress, Well developed/nourished, Other (flat affects) - HEENT HEENT: Atraumatic, PERRL, EOMI, Ears normal, Moist mucous membranes - Neck Neck: Supple, no meningeal sign, No bony TTP, No adenopathy, No JVD - Cardiac Cardiac: RRR, No murmur, No gallop - Respiratory Respiratory: No respiratory distress, Other (mild bibasal ) - Abdomen Abdomen: Normal bowel sounds, Soft, Non tender, Non distended - Back Back: No spinal TTP, Other (small bruise 2 in by 2in to right lower rib. no sub q crepitation) - Derm Derm: Normal color, Warm and dry, No rash - Extremities Extremities: No deformity, No tenderness to palpate, No edema, No calf tenderness / cord - Neuro Neuro: Alert and oriented X 3 Eye Opening: Spontaneous Motor: Obeys Commands Verbal: Oriented GCS Score: 15 - Psych Psych: Normal mood, Normal affect Results - Vitals Vitals: Vital Signs - 24 hr 08/29/19 08/29/19 08/29/19 10:09 12:24 12:31 Temperature Heart Rate 76 80 73 Respiratory 18 20 22 Rate Blood Pressure 122/72 153/98 H O2 Saturation 93 91 L 08/29/19 08/29/19 08/29/19 12:39 14:00 15:25 Temperature 37.0 C Heart Rate 84 82 Respiratory 22 12 Rate Blood Pressure 151/82 H 163/85 H O2 Saturation 96 93 92 Oxygen O2 Source Room air - EKG (time done) No standard instances Rate: Rate (enter#) (65) Rhythm: Atrial fibrillation Intervals: RBBB - Labs Labs: Laboratory Tests 08/29/19 08/29/19 08/29/19 12:29 12:29 12:29 WBC 7.7 RBC 4.44 L Hgb 14.2 Hct 44.5 MCV 100.2 H MCH 32.0 H MCHC 31.9 L RDW 13.8 Plt Count 130 MPV 11.0 Neut # (Auto) 5.4 Lymph # (Auto) 1.1 L Shoshone # (Auto) 0.9 Eos # (Auto) 0.4 Baso # (Auto) 0.0 Absolute Nucleated RBC 0.00 Nucleated RBC % 0.0 PT INR Sodium 140 Potassium 4.5 Chloride 101 Carbon Dioxide 29 Anion Gap 10.0 BUN 23 H Creatinine 0.9 Estimated GFR (MDRD) 80 L Glucose 122 H Calcium 9.4 Total Bilirubin 1.1 H AST 35 ALT 29 Alkaline Phosphatase 116 Troponin I High Sens 41.4 H* B-Natriuretic Peptide Total Protein 7.3 Albumin 3.9 Globulin 3.4 Albumin/Globulin Ratio 1.1 Lipase 23 08/29/19 08/29/19 08/29/19 12:29 12:29 13:55 WBC RBC Hgb Hct MCV MCH MCHC RDW Plt Count MPV Neut # (Auto) Lymph # (Auto) Shoshone # (Auto) Eos # (Auto) Baso # (Auto) Absolute Nucleated RBC Nucleated RBC % PT 14.4 H INR 1.3 H Sodium Potassium Chloride Carbon Dioxide Anion Gap BUN Creatinine Estimated GFR (MDRD) Glucose Calcium Total Bilirubin AST ALT Alkaline Phosphatase Troponin I High Sens 37.3 H* B-Natriuretic Peptide 376 H Total Protein Albumin Globulin Albumin/Globulin Ratio Lipase - Rads (name of study) No standard instances Radiology: Final report received (Mild left and small right pleural effusion, cardiomegaly with interstitial pulmonary edema, coarse aortic valve calcification, large amount of partial atelectasis in the left lower lung with lingula collapse in the left upper lobe, ascites in the upper abdomen, incomplete characterize indeterminate lesion of the inferior pole of right kidney, mild nonspecific mediastinal adenopathy) PD MEDICAL DECISION MAKING - ED course ED course: Initial rib and chest x-ray shows negative finding for rib fracture. Patient does have tenderness when he inspire deeply. I wonder if there is any occult fracture that is not discovered. Saturation when patient is resting very between 92- 94%. He is not in respiratory distress. he is soft spoken and has normal mentation. We will continue to work-up will possible pneumonia further desaturation and or occult fracture of the rib. I spoken to the family member at length regarding care from this point forward. PatientsWife and family member at bedside has requested hospice care knowledge in the regimen from the emergency room. We will speak to social service to come and educate and provide more information for them. Work-up for pneumonia including blood work, CT scan, shows chronic findings nothing acute. CT scan shows atelectasis, mild pleural effusion, Social service has completed her evaluation at 15;00. I went into the room and answered family members' questions. asked about given ibuprofen as opposed to Tylenol. I told her that patient can receive either. patient can receive 3 ibuprofen, 600 mg, every 6 hours as needed for pain. Continue following up with primary care doctor next Tuesday for arrangement to home health care, assisted- living Facility, or intermediate home. Social service is also given him input about respite care and information will be provided. Please see social service notes for further detail regarding their discussions Family member was given impression of right lower rib contusion without evidence of fracture; General deconditioning, CRI Departure - Departure Disposition: Home, Self Care Clinical Impression: Weakness, Physical deconditioning Contusion, chest wall Qualifiers: Encounter type: initial encounter Laterality: right Qualified Code(s): S20.211A - Contusion of right front wall of thorax, initial encounter CRI (chronic renal insufficiency) Qualifiers: Chronic kidney disease stage: unspecified stage Qualified Code(s): N18.9 - Chronic kidney disease, unspecified Condition: Poor Instructions: ED Contusion Chest Wall Follow-Up: Vicente Arora MD [Primary Care Provider] - Prescriptions: Ibuprofen 600 mg PO Q8HR PRN #30 capsule PRN Reason: Pain Comments: Please follow-up with your primary care doctor on Tuesday to arrange further care including home health care, respite care, assisted living facility or intermediate home facility. Take ibuprofen 600 mg every 8 hours as needed for pain. If there is worsening shortness of breath, respiratory distress, call primary care doctor or return to the emergency room for further management Discharge Date/Time: 08/29/19 15:55
--- NOTE | 2019-08-29 11:44 | XRAY Report ---
Reason: fall Procedure Date: 08/29/2019 Accession Number: [id number] / [id number] Procedure: XR - Ribs w/PA Chest RT CPT Code: Final Report FULL RESULT: EXAM: RIGHT RIB RADIOGRAPHY EXAM DATE: 08/29/2019 11:27 AM. CLINICAL HISTORY: Fall. COMPARISON: CHEST 1 VIEW 05/28/2019 10:33 PM. TECHNIQUE: 1 view of the chest and 2 views of the ribs. FINDINGS: Bones: Normal. No fracture or bone lesion. Lungs: Blunting of the left CP angle is new since the comparison study. Mediastinum: Cardiomegaly, mediastinal sutures, left-sided pacer device. Other: None. IMPRESSION: 1. No evidence of fractures. 2. Blunted left CP angle, atelectasis versus infiltrate is new since a comparison study from 05/28/2019. [facility]
[2019-08-29] MEDS ORDERED: IPRATROPIUM/ALBUTEROL 3 ML NEB INH STA (11:57)
[2019-08-29 12:48] LABS: BASOPHILS % (AUTO) 0.5 %; EOSINOPHILS # (AUTO) 0.4 10^3/uL (0.0-0.7); EOSINOPHILS % (AUTO) 4.9 %; HGB - HEMOGLOBIN 14.2 g/dL (14.0-18.0); LYMPHOCYTES # (AUTO) 1.1 10^3/uL (1.5-3.5); LYMPHOCYTES % (AUTO) 13.6 %; MEAN CORPUSCULAR HGB CONC 31.9 g/dL (32.0-36.0); MEAN CORPUSCULAR VOLUME 100.2 fL (80.0-94.0); MONOCYTES # (AUTO) 0.9 10^3/uL (0.0-1.0); MONOCYTES % (AUTO) 11.2 %; NEUTROPHILS # (AUTO) 5.4 10^3/uL (1.5-6.6); NEUTROPHILS % (AUTO) 69.4 %; PLT - PLATELET COUNT 130 10^3/uL (130-450); RED BLOOD COUNT 4.44 10^6/uL (4.70-6.10); RED CELL DISTRIBUTION WIDTH 13.8 % (12.0-15.0); WHITE BLOOD COUNT 7.7 x10^3/uL (4.8-10.8)
[2019-08-29] MEDS ORDERED: IOVERSOL 320 100 ML VIAL IVP ONE ×2 (12:48→13:28)
[2019-08-29 12:55] LABS: INR 1.3 (0.8-1.2); PT - PROTHROMBIN TIME 14.4 secs (9.9-12.6)
[2019-08-29 12:58] LABS: ALBUMIN 3.9 g/dL (3.2-5.5); ALBUMIN/GLOBULIN RATIO 1.1 (1.0-2.2); BILIRUBIN,TOTAL 1.1 mg/dL (0.2-1.0); CALCIUM 9.4 mg/dL (8.5-10.3); CREATININE 0.9 mg/dL (0.6-1.2); TOTAL PROTEIN 7.3 g/dL (6.7-8.2)
[2019-08-29] MEDS ORDERED: SODIUM CHLORIDE 0.9% 1,000 ML IV ONE (13:36)
--- NOTE | 2019-08-29 13:59 | CT Report ---
Reason: Chest trauma, blunt, low energy Procedure Date: 08/29/2019 Accession Number: [id number] / [id number] Procedure: CT - CHEST W CPT Code: Final Report FULL RESULT: EXAM: CT CHEST EXAM DATE: 08/29/2019 01:23 PM. CLINICAL HISTORY: Chest trauma, blunt, low energy. COMPARISONS: RENAL 10/05/2012 3:32 PM. TECHNIQUE: Routine helical CT imaging was performed through the chest. IV contrast: 80 mL Optiray 320. Reconstructions: Coronal and sagittal. In accordance with CT protocol optimization, one or more of the following dose reduction techniques were utilized for this exam: automated exposure control, adjustment of mA and/or KV based on patient size, or use of iterative reconstructive technique. FINDINGS: Lungs/Pleura: Mild left and small right pleural effusions with the left pleural effusion extending into the major fissure. Airways wall thickening. Patent central airways. Mild cylindrical bronchiolectasis. Respiratory motion artifact. Smooth interlobular septal thickening. Posterior dependent subsegmental atelectasis in the right lung. Lingular atelectasis. Left lower lobe opacity with volume loss, suspect large amount of passive partial atelectasis. Mediastinum: 3 vessel coronary artery atherosclerotic calcifications. CABG. Mild to moderate cardiomegaly. Mitral annulus calcification. Coarse aortic valve calcifications. No pericardial effusion. Mild mediastinal lymphadenopathy. For example, 2R lymph node, series 3, axial image 15, measures 1.2 cm. For example, 4R lymph node, series 3, axial image 30, measures 1.1 cm. Small hilar lymph nodes seen. Left-sided Defibulator with a right ventricular lead. Bones: Median sternotomy. Visualized Abdomen: Perihepatic free fluid. Reflux of contrast into the hepatic veins. Trace perisplenic free fluid. Moderate pancreatic atrophy. Mild thickening of the adrenal glands without measurable nodules. Exophytic lesion off the inferior pole right kidney measures 1.0 cm, incompletely characterized. Large amount of gas and stool in the colon. Vascular: Severe aortic atherosclerotic disease, in particular the infrarenal abdominal aorta with severe calcific atherosclerotic disease present. Other: Body wall edema IMPRESSION: 1. Mild left and small right pleural effusions. 2. Cardiomegaly with interstitial pulmonary edema. 3. Coarse aortic valve calcifications. 4. Large amount of partial atelectasis in the left lower lobe with lingular collapse in the left upper lobe. 5. Ascites in the upper abdomen. 6. Incompletely characterize indeterminate lesion off the inferior pole right kidney. Could be further characterized with ultrasound or dedicated renal CT. 7. Mild nonspecific mediastinal adenopathy [facility]
[2019-08-29 15:26] VITALS: BP 163/85
== END 2019-08-29 15:55 | disposition home or self-care (01) ==
LOC: ED 10:02
DX: S20.211A Contusion of right front wall of thorax, initial encounter (principal); M54.5 Low back pain; W18.30XA Fall on same level, unspecified, initial encounter; Y92.009 Unspecified place in unspecified non-institutional (private) residence as the place of occurrence of the external cause; R53.1 Weakness; I13.0 Hypertensive heart and chronic kidney disease with heart failure and stage 1 through stage 4 chronic kidney disease, or unspecified chronic kidney disease; N18.9 Chronic kidney disease, unspecified; I50.9 Heart failure, unspecified; J98.11 Atelectasis; J90 Pleural effusion, not elsewhere classified; I48.91 Unspecified atrial fibrillation; I45.10 Unspecified right bundle-branch block; I35.8 Other nonrheumatic aortic valve disorders; Z95.2 Presence of prosthetic heart valve; Z79.82 Long term (current) use of aspirin
CPT/HCPCS: 36415; 71101; 71260; 80053; 83690; 83880; 84484; 85025; 85610; 93005; 94640; 96360; 96361; 99284; A9270; Q9967

== ENCOUNTER 2019-09-12 13:00 | Outpatient (CLI) | payer MEDICARE | END 2019-09-12 13:01 | disposition home or self-care (01) | LOC: DI 13:00 | PROVIDERS: ATTEND Family Medicine | DX: R53.83 Other fatigue (principal); R53.81 Other malaise; E78.2 Mixed hyperlipidemia; Z86.79 Personal history of other diseases of the circulatory system; I50.9 Heart failure, unspecified; T82.09XA Other mechanical complication of heart valve prosthesis, initial encounter; I08.2 Rheumatic disorders of both aortic and tricuspid valves | CPT/HCPCS: 93306 ==

== ENCOUNTER 2019-10-01 01:08 | Outpatient (CLI) | payer MEDICARE | END 2019-10-01 01:09 | disposition EMS.NT | LOC: EMS 01:08 | PROVIDERS: ATTEND Surgery | DX: R53.1 Weakness (principal) ==

== ENCOUNTER 2019-10-05 03:59 | Outpatient (CLI) | payer MEDICARE | END 2019-10-05 04:00 | disposition EMS.NT | LOC: EMS 03:59 | PROVIDERS: ATTEND Surgery | DX: R53.1 Weakness (principal) ==